=== PATIENT | male | born 1975 | race African-American/Black ===

== ENCOUNTER 2025-06-24 21:12 | Emergency (ER) | payer SELFPAY ==
[~2025-06-24] VITALS: Ht 182.9 cm; Wt 83.0 kg
[2025-06-24 21:30] VITALS: O2SAT 99
[2025-06-25] MEDS: LIDOCAINE 5% PATCH TOP SCH (00:19)
[2025-06-25] MEDS: KETOROLAC 15MG/ML VIAL IM ONE (00:19)
[2025-06-25] MEDS ORDERED: NAPR-1176 MT (00:35)
[2025-06-25] MEDS ORDERED: LIDO-53 TP (00:35)
[2025-06-25] MEDS: HYDROCODONE/ACETAMINOPHEN 5/325MG TABLET PO ONE (02:00)
[2025-06-25] MEDS ORDERED: CYCL5TAB3 MT (02:28)
[2025-06-25 02:35] VITALS: BP 129/73; PULSE 86; RESP 15; TEMP 36.9; O2SAT 99
== END 2025-06-25 02:35 | disposition home or self-care (01) ==
LOC: ER 21:12
DX: M25.511 Pain in right shoulder (principal); J45.909 Unspecified asthma, uncomplicated
CPT/HCPCS: 99283; 73030; 96372; J1885